=== PATIENT | male | born 1970 | race Caucasian/White ===

== ENCOUNTER 2018-10-10 08:40 | Day surgery (SDC) | payer OTHER ==
[~2018-10-10] VITALS: Ht 185.4 cm; Wt 84.1 kg
[2018-10-10 09:29] VITALS: Ht 185.4 cm; Wt 84.1 kg
[2018-10-10 09:37] LABS: CALC OSMOLALITY 284 mosm/kg (275-300); CALCIUM 9.5 mg/dL (8.5-10.1); CARBON DIOXIDE 30.8 mmol/L (21.0-32.0); CHLORIDE - SERUM 104 mmol/L (98-107); GLUCOSE 84 mg/dL (74-106); POTASSIUM - SERUM 4.4 mmol/L (3.5-5.1); SODIUM 143 mmol/L (136-145); UREA NITROGEN 15 mg/dL (7-18); eGFR NON AFRICAN AMERICAN 84 mL/min (90-120)
--- NOTE | 2018-10-10 13:05 | NUR ---
DC INSTRUCTIONS GIVEN TO PT/FAMILY. STATE UNDERSTANDING. DC'D IV CATH FULLY INTACT. PT LEFT UNIT VIA WC AT 1300
--- NOTE | 2018-10-11 16:06 | OP ---
PATIENT NAME: HARRIS BOLANOS MEDICAL RECORD: [id number] :66 LOCATION:.[facility] ADMISSION DATE: SURGEON: JHOAN CORRALES MD DATE OF OPERATION: 10/10/2018 PREOPERATIVE DIAGNOSIS: Desires screening colonoscopy. POSTOPERATIVE DIAGNOSIS: Desires screening colonoscopy. Normal colon and rectum. PROCEDURE: Total colonoscopy to cecum. SURGEON: Jhoan Corrales MD [place] TECHNICIAN: None. BLOOD LOSS: Minimal. ANESTHESIA: IV sedation. COMPLICATIONS: None. The risks, possible complications, and alternatives to the procedure were explained to the patient. He elects to proceed. ENDOSCOPIC COURSE: The patient was conveyed to endoscopy suite electively on 10/10/2018. IV sedation was induced by the anesthesia staff. The patient was placed in the H[place] position. A digital rectal examination was performed. A colonoscope was inserted through the anus. It was easily advanced to the cecum. The prep was adequate. I slowly withdrew the endoscope. A combination of direct imaging and narrow band imaging were utilized. I dragged the folds. I irrigated and aspirated extensively. A retroflexed view was obtained in the rectum. I then unretroflexed the scope and removed it under direct vision. There is no need for the patient to follow up with me in the office. I am going to plan for his next colonoscopy to take place in 10 years unless he develops new symptoms such as rectal bleeding. TRANSINT:[id number] Voice Confirmation ID: [id number] DOCUMENT ID: [id number] JHOAN CORRALES MD at 1606 CC: VASQUEZ CROWLEY DO [id number] DICTATION DATE: 10/10/18 1214 BOILER TUBE REAMER: 10/10/18 1240 [facility] 10/10/18 [facility] [address] [place] [address]
--- NOTE | 2018-10-11 16:06 | HP ---
PATIENT: HARRIS BOLANOS MEDICAL RECORD: [id number] ACCOUNT: [id number] LOCATION:[facility] : 66 ADMISSION DATE: 10/10/18 PCP: VASQUEZ CROWLEY DO HISTORY AND PHYSICAL EXAMINATION HISTORY OF PRESENT ILLNESS: The patient is here for screening colonoscopy. He has had no abdominal pain. No family history of colon cancer. No melena. No hematochezia. SOCIAL HISTORY: Nonsmoker. PAST MEDICAL AND SURGICAL HISTORY: Negative. HOME MEDICATIONS: None. ALLERGIES: No known drug allergies. PHYSICAL EXAMINATION: GENERAL: The patient does not appear acutely ill. He does not appear chronically ill. VITAL SIGNS: Reviewed. EARS: External ears appear normal. EYES: Extraocular movements are intact. NECK: Trachea is midline. CHEST: No intercostal retractions. PULMONARY: Nonlabored. IMPRESSION: Desires screening colonoscopy. PLAN: Screening colonoscopy. TRANSINT:[id number] Voice Confirmation ID: [id number] DOCUMENT ID: [id number] MADHU CORRALES MD at 1606 CC: VASQUEZ CROWLEY DO [id number] DICTATION DATE: 10/10/18 1140 CLINICAL TRAINER: 10/10/18 1219 [facility] 10/10/18 [facility] [address] [place] [address]
== END 2018-10-10 13:00 | disposition home or self-care (01) ==
LOC: D.OPS 08:40
PROVIDERS: Anesthesiology
DX: Z12.11 Encounter for screening for malignant neoplasm of colon (principal)